=== PATIENT | female | born 1980 | race Caucasian/White ===

== ENCOUNTER 2018-06-11 23:46 | Emergency (ER) | payer OTHER ==
[~2018-06-11] VITALS: Ht 170.2 cm; Wt 77.1 kg
== END 2018-06-12 | disposition left against medical advice (07) ==
LOC: ER 23:46
DX: Z53.20 Procedure and treatment not carried out because of patient's decision for unspecified reasons (principal)

== ENCOUNTER 2023-01-09 09:49 | Emergency (ER) | payer OTHER ==
[~2023-01-09] VITALS: Ht 170.2 cm; Wt 83.9 kg
== END 2023-01-09 13:21 | disposition home or self-care (01) ==
LOC: ER 09:49
DX: R07.89 Other chest pain (principal); N39.0 Urinary tract infection, site not specified; Z88.6 Allergy status to analgesic agent